=== PATIENT | male | born 1960 | race Caucasian/White ===

== ENCOUNTER 2020-10-27 09:55 | Outpatient (CLI) | payer BC, SELFPAY ==
--- NOTE | ~2020-10-27 | XR_ITS ---
XR knee RT 2V, XR knee LT 2V 10/27/2020 10:14 Indication: Bilateral knee pain Procedure: 2 views of each knee Comparison: No prior studies for comparison. Findings: Mild osteoarthritis of both knees which is symmetric. No fracture or traumatic malalignment . No significant joint effusion. No foreign bodies. Impression: 1: Mild bilateral symmetric osteoarthritis of the knees. Reviewed, dictated and finalized at location A. Impression: 1: Mild bilateral symmetric osteoarthritis of the knees. Impression: 1: Mild bilateral symmetric osteoarthritis of the knees.
== END 2020-10-27 09:56 ==
PROVIDERS: Visit Provider Nurse Practitioner Family
DX: M17.0 Bilateral primary osteoarthritis of knee (principal)
CPT/HCPCS: 73560